=== PATIENT | female | born 1970 | race Caucasian/White ===

== ENCOUNTER 2024-02-22 19:09 | Emergency (ER) | payer OTHER ==
[2024-02-22] MEDS ORDERED: Ondansetron 4 MG/2 ML SDV ONE (20:00)
[2024-02-22] MEDS ORDERED: Lactated Ringers 1,000 ML ONE (20:00)
[2024-02-22] MEDS ORDERED: Morphine 4 MG/ML Syringe ONE (20:00)
[2024-02-22] MEDS: Ondansetron 4 MG/2 ML SDV IVPUSH ONE ×2 (20:11→22:45)
[2024-02-22] MEDS: Lactated Ringers 1,000 ML IV SCH ×2 (20:11→23:23)
[2024-02-22] MEDS: Sodium Chloride 0.9% 10 ML Syringe FLUSH PRN (20:12)
[2024-02-22] MEDS: Morphine 4 MG/ML Syringe IVPUSH ONE (20:13)
[2024-02-22 20:26] LABS: BASOPHILS ABSOLUTE AUTO 0.1 K/mm3 (0.0-0.2); BASOPHILS PERCENT AUTO 0.3 % (0.0-1.0); EOSINOPHILS PERCENT AUTO 0.1 % (0.0-6.0); IMMATURE GRAN ABSOLUTE AUTO 0.05 K/mm3 (0.00-0.05); IMMATURE GRAN PERCENT AUTO 0.3 % (0.0-0.4); LYMPHOCYTES ABSOLUTE AUTO 1.9 K/mm3 (1.0-4.8); MEAN CORPUSCULAR HEMOGLOBIN 29.9 pg (28.0-32.0); MEAN CORPUSCULAR HGB CONC 35.7 g/dl (32.0-36.0); MEAN CORPUSCULAR VOLUME 83.8 fl (83.0-99.0); MEAN PLATELET VOLUME 9.1 fl (9.4-12.3); MONOCYTES ABSOLUTE AUTO 1.3 K/mm3 (0.0-0.8); MONOCYTES PERCENT AUTO 8.9 % (0.0-8.0); NEUTROPHILS ABSOLUTE AUTO 11.2 K/mm3 (1.8-7.7); NEUTROPHILS PERCENT AUTO 77.4 % (41.0-71.0); PLATELET COUNT,PLT 471 K/mm3 (150-400); RED BLOOD CELL COUNT 5.01 M/mm3 (4.10-5.30); WHITE BLOOD CELL COUNT,WBC 14.46 K/mm3 (3.9-11.3)
[2024-02-22 20:51] LABS: A/G RATIO 1.2 (1-2); ALBUMIN 4.3 g/dl (3.4-5.0); ANION GAP 14.4 (5-15); BILIRUBIN TOTAL 0.8 mg/dL (0.2-1.0); BUN/CREATININE RATIO 18.8 (14-18); CALCIUM 9.4 mg/dL (8.5-10.1); CREATININE 0.8 mg/dL (0.55-1.02); EST CRCL DRUG DOSING (CG) 77.88 mL/min; POTASSIUM,K 3.4 mEq/L (3.5-5.1)
[2024-02-22] MEDS: Famotidine 20 MG/2 ML SDV IVPUSH ONE (21:14)
[2024-02-22] MEDS: Alum Hydrox/Mag Hydrox/Simeth 30 ML, Lidocaine 2% 15 ML PO ONE (21:23)
[2024-02-22] MEDS: Lactated Ringers 1,000 ML IV ONE (21:51)
[2024-02-23] MEDS: Metoclopramide 10 MG/2 ML SDV IVPUSH ONE (00:09)
[2024-02-23] MEDS: Dicyclomine 20 MG/2 ML SDV IM ONE (02:53)
[2024-02-23] MEDS: Octreotide 500 MCG in Sodium Chloride 0.9% 499 ML IV SCH (02:54)
[2024-02-23] MEDS: Alum Hydrox/Mag Hydrox/Simeth 30 ML, Lidocaine 2% 15 ML PO ONE (02:54)
== END 2024-02-23 02:25 | disposition home or self-care (01) ==
LOC: JD.ED 19:09
DX: R10.13 Epigastric pain (principal); E86.0 Dehydration; Z79.899 Other long term (current) drug therapy; Z91.018 Allergy to other foods
CPT/HCPCS: 36415; 71045; 80053; 83690; 84703; 85025; 96361; 96374; 96375; 96376; 99284; A9270; J2270; J2405; J2765; J3490; J7120